=== PATIENT | male | born 1970 | race Caucasian/White ===

== ENCOUNTER 2019-06-25 19:31 | Emergency (ER) | payer MEDICAID, OTHER ==
[~2019-06-25] VITALS: Ht 167.6 cm; Wt 121.2 kg
[2019-06-25 19:45] VITALS: Ht 167.6 cm; Wt 121.2 kg
[2019-06-25] MEDS ORDERED: KETOROLAC 30 MG INJ IV STA (20:24)
[2019-06-25 22:10] VITALS: BP 104/70; PULSE 63; RESP 18
== END 2019-06-25 22:10 | disposition home or self-care (01) ==
LOC: E/R 19:31
DX: R07.9 Chest pain, unspecified (principal); R51 Headache; I10 Essential (primary) hypertension
CPT/HCPCS: 36415; 71045; 80048; 84484; 85025; 93005; 96374; J1885; Z7502